=== PATIENT | female | born 1985 | race Caucasian/White ===

== ENCOUNTER 2021-10-09 20:46 | Emergency (ER) | payer MEDICAID ==
[~2021-10-09] VITALS: Ht 152.4 cm; Wt 75.9 kg
[2021-10-09] MEDS ORDERED: CEPH500T MT (22:53)
[2021-10-09] MEDS ORDERED: IBUP-2029 MT (22:53)
[2021-10-09] MEDS ORDERED: IBUPROFEN 600MG TABLET PO ONE (23:00)
[2021-10-09 23:42] VITALS: BP 112/87
== END 2021-10-09 23:43 | disposition home or self-care (01) ==
LOC: ER 20:46
DX: L02.212 Cutaneous abscess of back [any part, except buttock and flank] (principal); Z98.890 Other specified postprocedural states
CPT/HCPCS: 99283

== ENCOUNTER 2022-08-01 23:56 | Emergency (ER) | payer MEDICAID ==
[~2022-08-01] VITALS: Ht 149.9 cm; Wt 75.0 kg
[~2022-08-01 23:56] MED LIST: CEPH500T MT; IBUP-2029 MT
[2022-08-02 01:10] LABS: CLARITY URINE CLEAR (CLEAR); COLOR URINE YELLOW (YELLOW); KETONES URINE TRACE (NEGATIVE); LEUKOCYTE ESTERASE URINE TRACE (NEGATIVE); NITRITE URINE NEGATIVE (NEGATIVE); OCCULT BLOOD URINE 3+ (NEGATIVE); PROTEIN URINE TRACE (NEGATIVE); SPECIFIC GRAVITY URINE 1.031 (1.005-1.030); UROBILINOGEN URINE 0.2 E.U./dL (0.2-1.0)
[2022-08-02] MEDS ORDERED: CEFTRIAXONE SODIUM 500 MG/VIAL IM ONE (01:45)
[2022-08-02] MEDS ORDERED: LIDOCAINE HCL/PF 1% 10 MG/ML 5ML VIAL INFIL ONE (01:45)
[2022-08-02] MEDS ORDERED: DOXY100C5 MT (02:47)
[2022-08-02 03:15] VITALS: BP 121/79
== END 2022-08-02 03:22 | disposition home or self-care (01) ==
LOC: ER 23:56
DX: Z20.2 Contact with and (suspected) exposure to infections with a predominantly sexual mode of transmission (principal); Z94.7 Corneal transplant status; Z90.49 Acquired absence of other specified parts of digestive tract; Z98.890 Other specified postprocedural states
CPT/HCPCS: 81003; 96372; 99283; J0696; J3490

== ENCOUNTER 2023-09-04 14:57 | Emergency (ER) | payer OTHER ==
[~2023-09-04] VITALS: Ht 149.9 cm; Wt 66.0 kg
[~2023-09-04 14:57] MED LIST changes: +DOXY100C5 MT
[2023-09-04 15:09] VITALS: O2SAT 100
[2023-09-04] MEDS: KETOROLAC 60MG/2ML VIAL IM STA (15:57)
[2023-09-04] MEDS: BACITRACIN ZINC OINT UDPKT TOP ONE (15:57)
[2023-09-04] MEDS: LIDOCAINE HCL/PF 1% 10 MG/ML 5ML VIAL INFIL ONE (15:57)
[2023-09-04] MEDS ORDERED: CEFTRIAXONE SODIUM 1G VIAL IM NR (17:15)
[2023-09-04] MEDS ORDERED: CEPH500T MT (17:21)
[2023-09-04] MEDS ORDERED: T3 PO (17:21)
[2023-09-04] MEDS ORDERED: SULF1TAB48 MT (17:21)
[2023-09-04] MEDS ORDERED: NAPR-681 MT (17:21)
[2023-09-04] MEDS: LIDOCAINE HCL/PF 1% 10 MG/ML 5ML VIAL INFIL NR (17:28)
[2023-09-04 18:09] VITALS: BP 116/77; PULSE 97; RESP 14; TEMP 98.3
== END 2023-09-04 18:21 | disposition home or self-care (01) ==
LOC: ER 15:48
DX: L03.012 Cellulitis of left finger (principal); L02.512 Cutaneous abscess of left hand; Z90.49 Acquired absence of other specified parts of digestive tract; Z98.890 Other specified postprocedural states; Z79.899 Other long term (current) drug therapy
CPT/HCPCS: 81025; 10060; 96372; 99283; J0696; J1885; J3490; Z7610 ×4

== ENCOUNTER 2023-09-06 10:11 | Emergency (ER) | payer MEDICAID, OTHER ==
[~2023-09-06] VITALS: Ht 149.9 cm; Wt 68.0 kg
[~2023-09-06 10:11] MED LIST changes: +NAPR-681 MT; +SULF1TAB48 MT; +T3 PO
[2023-09-06 10:21] VITALS: PULSE 117
[2023-09-06 10:31] VITALS: BP 110/64; RESP 16; TEMP 97.8; O2SAT 98
[2023-09-06] MEDS: BACITRACIN ZINC OINT UDPKT TOP ONE (11:00)
[2023-09-06] MEDS: LIDOCAINE HCL/PF 1% 10 MG/ML 5ML VIAL INFIL ONE (12:00)
== END 2023-09-06 15:23 | disposition home or self-care (01) ==
LOC: ER 10:11
DX: S61.012D Laceration without foreign body of left thumb without damage to nail, subsequent encounter (principal); Z48.00 Encounter for change or removal of nonsurgical wound dressing; X58.XXXD Exposure to other specified factors, subsequent encounter
CPT/HCPCS: 99282; J3490

== ENCOUNTER 2025-05-12 23:37 | Emergency (ER) | payer MEDICAID ==
[~2025-05-12] VITALS: Ht 152.4 cm; Wt 75.0 kg
[~2025-05-12 23:37] MED LIST changes: +IBUP-1455 MT; -IBUP-2029 MT
[2025-05-12 23:50] VITALS: O2SAT 100
[2025-05-13 00:23] LABS: CLARITY URINE CLEAR (CLEAR); COLOR URINE YELLOW (YELLOW); GLUCOSE URINE NEGATIVE (NEGATIVE); KETONES URINE NEGATIVE (NEGATIVE); LEUKOCYTE ESTERASE URINE TRACE (NEGATIVE); NITRITE URINE NEGATIVE (NEGATIVE); OCCULT BLOOD URINE NEGATIVE (NEGATIVE); PH URINE 5.5 (4.5-8.0); PROTEIN URINE NEGATIVE (NEGATIVE); SPECIFIC GRAVITY URINE 1.031 (1.005-1.030); UROBILINOGEN URINE 0.2 E.U./dL (0.2-1.0)
[2025-05-13 01:10] VITALS: BP 127/76; PULSE 90; RESP 18; TEMP 36.8; O2SAT 100
[2025-05-13] MEDS: CEFTRIAXONE SODIUM 500MG VIAL IM ONE (01:12)
[2025-05-13] MEDS ORDERED: DOXY100C5 MT (01:47)
[2025-05-13 02:09] LABS: BACTERIA URINE NONE SEEN; CALCIUM OXALATE CRYSTALS URINE 1+ /lpf; RBC URINE NONE SEEN /hpf (0-2); SQUAMOUS EPITHELIAL CELL URINE 2+ /lpf (RARE/1+)
[2025-05-15 05:14] LABS: CHLAMYDIA TRACHOMATIS NAA Negative (Negative); NEISSERIA GONORRHOEAE NAA Negative (Negative)
== END 2025-05-13 02:03 | disposition home or self-care (01) ==
LOC: ER 23:37
DX: A64 Unspecified sexually transmitted disease (principal); Z11.3 Encounter for screening for infections with a predominantly sexual mode of transmission; Z90.49 Acquired absence of other specified parts of digestive tract
CPT/HCPCS: 99283; 87491; 87591; 81003; 96372; J0696